=== PATIENT | female | born 1995 | race Hispanic/Latino ===

== ENCOUNTER 2018-07-20 19:59 | Emergency (ER) | payer SELFPAY ==
--- NOTE | 2018-07-20 20:13 | EDPHYS ---
Physician Documentation [facility] Name: Grace Bullock Age: 22 yrs Sex: Female : 1995 Arrival Date: 07/20/2018 Time: 20:02 Bed 17 Private MD: ED Physician Ford Denson HPI: 07/20 20:11 This 22 yrs old Female presents to ER via Unassigned with complaints of Ear kb Pain, Drainage From Ear. 20:11 The patient presents with pain. The complaints affect the right ear and left ear. kb Onset: The symptoms/episode began/occurred 3 day(s) ago. Modifying factors: The symptoms are alleviated by nothing, the symptoms are aggravated by nothing. Associated signs and symptoms: Pertinent positives: fever. Severity of symptoms: At their worst the symptoms were moderate in the emergency department the symptoms are unchanged. The patient has not experienced similar symptoms in the past. The patient has not recently seen a physician. Right ear pain for 3 days, left ear pain for 1 day. Fever on the first day, but not since then. States hearing is muffled on right side. 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 - Social history:: Smoking status: Patient/guardian denies using tobacco. - Ebola Screening: : Patient negative for fever greater than or equal to 101.5 degrees Fahrenheit, and additional compatible Ebola Virus Disease symptoms. ROS: 20:11 Constitutional: Negative for fever, chills, and weight loss, Cardiovascular: Negative kb for chest pain, palpitations, and edema, Respiratory: Negative for shortness of breath, cough, wheezing, and pleuritic chest pain, Abdomen/GI: Negative for abdominal pain, nausea, vomiting, diarrhea, and constipation, MS/Extremity: Negative for injury and deformity, Skin: Negative for injury, rash, and discoloration, Neuro: Negative for headache, weakness, numbness, tingling, and seizure. 20:11 ENT: Positive for ear pain. Exam: 20:11 Constitutional: This is a well developed, well nourished patient who is awake, alert, kb and in no acute distress. Head/Face: Normocephalic, atraumatic. Neck: Trachea midline, no thyromegaly or masses palpated, and no cervical lymphadenopathy. Supple, full range of motion without nuchal rigidity, or vertebral point tenderness. No Meningismus. Chest/axilla: Normal chest wall appearance and motion. Nontender with no deformity. No lesions are appreciated. Cardiovascular: Regular rate and rhythm with a normal S1 and S2. No gallops, murmurs, or rubs. Normal PMI, no JVD. No pulse deficits. Respiratory: Lungs have equal breath sounds bilaterally, clear to auscultation and percussion. No rales, rhonchi or wheezes noted. No increased work of breathing, no retractions or nasal flaring. Abdomen/GI: Soft, non-tender, with normal bowel sounds. No distension or tympany. No guarding or rebound. No evidence of tenderness throughout. Skin: Warm, dry with normal turgor. Normal color with no rashes, no lesions, and no evidence of cellulitis. MS/ Extremity: Pulses equal, no cyanosis. Neurovascular intact. Full, normal range of motion. Neuro: Awake and alert, GCS 15, oriented to person, place, time, and situation. Cranial nerves II-XII grossly intact. Motor strength 5/5 in all extremities. Sensory grossly intact. Cerebellar exam normal. Normal gait. 20:11 ENT: External ear(s): are unremarkable, Ear canal(s): are normal, TM's: bulging, on the right, erythema, that is moderate, on the right. Vital Signs: 20:12 BP 119 / 87; Pulse 87; Resp 16 S; Temp 98.7(O); Pulse Ox 99% on R/A; Weight 56.7 kg jd3 (R); Height 5 ft. 1 in. (154.94 cm) (R); Pain 8/10; 20:12 Body Mass Index 23.62 (56.70 kg, 154.94 cm) jd3 MDM: 20:07 Patient medically screened. kb 20:12 Data reviewed: vital signs, nurses notes. Data interpreted: Pulse oximetry: on room air kb is 100 %. Interpretation: normal. Counseling: I had a detailed discussion with the patient and/or guardian regarding: the historical points, exam findings, and any diagnostic results supporting the discharge/admit diagnosis, the need for outpatient follow up, a family practitioner, to return to the emergency department if symptoms worsen or persist or if there are any questions or concerns that arise at home. Administered Medications: No medications were administered Disposition: 07/21 07:49 Co-signature as Attending Physician, Ford Denson MD I agree with the assessment and derik plan of care. Disposition: 07/20/18 20:13 Discharged to Home. Impression: Otitis media, unspecified, right ear. - Condition is Stable. - Discharge Instructions: Otitis Media, Adult, [id number]. - Prescriptions for Amoxicillin 875 mg Oral Tablet - take 1 tablet by ORAL route every 12 hours for 10 days; 20 tablet. - Medication Reconciliation Form, Thank You Letter, Antibiotic Education, Prescription Opioid Use form. - Follow up: Emergency Department; When: As needed; Reason: Worsening of condition. Follow up: Private Physician; When: 2 - 3 days; Reason: Recheck today's complaints, Continuance of care, Re-evaluation by your physician. Signatures: Maricel Dill, BARREL RIFLER BUTTON-C BARREL RIFLER BUTTON-Ford Vogel MD MD cha Krenek, Amber, RN RN ak1 Faisal José RN RN jd3 Corrections: (The following items were deleted from the chart) 07/20 20:30 20:13 07/20/2018 20:13 Discharged to Home. Impression: Otitis media, unspecified, right ak1 ear. Condition is Stable. Forms are Medication Reconciliation Form, Thank You Letter, Antibiotic Education, Prescription Opioid Use. Follow up: Emergency Department; When: As needed; Reason: Worsening of condition. Follow up: Private Physician; When: 2 - 3 days; Reason: Recheck today's complaints, Continuance of care, Re-evaluation by your physician. kb
--- NOTE | 2018-07-20 20:13 | ER ---
Nurse's Notes [facility] Name: Grace Bullock Age: 22 yrs Sex: Female : 1995 Arrival Date: 07/20/2018 Time: 20:02 Bed 17 Private MD: Diagnosis: Otitis media, unspecified, right ear Presentation: 07/20 20:10 Presenting complaint: Patient states: "I am having pain in both my ears. I am having jd3 drainage and I can't hear out of my right ear.". Transition of care: patient was not received from another setting of care. Onset of symptoms was July 20, 2018. Risk Assessment: Do you want to hurt yourself or someone else? Patient reports no desire to harm self or others. Initial Sepsis Screen: Does the patient meet any 2 criteria? No. Patient's initial sepsis screen is negative. Does the patient have a suspected source of infection? No. Patient's initial sepsis screen is negative. Care prior to arrival: None. 20:10 Method Of Arrival: Ambulatory jd3 20:10 Acuity: ADE 4 jd3 Triage Assessment: 20:27 General: Appears in no apparent distress. Behavior is calm, cooperative. Pain: ak1 Complains of pain in right ear and left ear. EENT: Reports pain in left ear and right ear. Neuro: No deficits noted. Cardiovascular: No deficits noted. Respiratory: No deficits noted. GI: No signs and/or symptoms were reported involving the gastrointestinal system. : No signs and/or symptoms were reported regarding the genitourinary system. Derm: No signs and/or symptoms reported regarding the dermatologic system. Musculoskeletal: No signs and/or symptoms reported regarding the musculoskeletal system. 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 - Social history:: Smoking status: Patient/guardian denies using tobacco. - Ebola Screening: : Patient negative for fever greater than or equal to 101.5 degrees Fahrenheit, and additional compatible Ebola Virus Disease symptoms. Screenin:26 Abuse screen: Denies threats or abuse. Denies injuries from another. Nutritional ak1 screening: No deficits noted. Tuberculosis screening: No symptoms or risk factors identified. Fall Risk None identified. Vital Signs: 20:12 BP 119 / 87; Pulse 87; Resp 16 S; Temp 98.7(O); Pulse Ox 99% on R/A; Weight 56.7 kg jd3 (R); Height 5 ft. 1 in. (154.94 cm) (R); Pain 8/10; 20:12 Body Mass Index 23.62 (56.70 kg, 154.94 cm) jd3 ED Course: 20:02 Patient arrived in ED. es 20:03 Maricel Dill FNP-C [facility]. kb 20:03 Ford Denson MD is Attending Physician. kb 20:06 Aicha Redd, RN is Primary Nurse. ak1 20:11 Triage completed. jd3 20:14 Arm band placed on. jd3 20:27 Patient has correct armband on for positive identification. Bed in low position. Call ak1 light in reach. Side rails up X 1. Pulse ox on. NIBP on. 20:28 No provider procedures requiring assistance completed. Patient did not have IV access ak1 during this emergency room visit. Administered Medications: No medications were administered Outcome: 20:13 Discharge ordered by . kb 20:28 Discharged to home ambulatory, with family. ak1 20:28 Condition: good 20:28 Discharge instructions given to patient, Instructed on discharge instructions, follow up and referral plans. no drinking with medication, no driving heavy equipment, medication usage, safe sex practices, control, Demonstrated understanding of instructions, follow-up care, medications, Prescriptions given X 1. 20:30 Patient left the ED. ak1 Signatures: Maricel Dill FNP-C FNP-Helga Lomax Aicha Redd, RN RN ak1 Faisal José RN RN j
== END 2018-07-20 20:30 | disposition home or self-care (01) ==
LOC: ER 19:59
DX: H66.91 Otitis media, unspecified, right ear (principal)
CPT/HCPCS: 99283

== ENCOUNTER 2021-02-01 20:55 | Emergency (ER) | payer SELFPAY ==
--- OUTSIDE RECORDS SUMMARY | 2021-02-01 20:58 | XMS REPORT | Continuity of Care Document ---
:1995 Author Organization [facility] t Address [address] [place] [address] Care Team Providers Name Role Phone Arnaldo Toro DO Attending Clinician Rory Callejas Attending Clinician Problems Condition Condition Condition Status Onset Resolution Last Treating Co mments Source Name Details Category Date Date Treatment Clinician Date No-show Diagnosis Active 2019-12-14 Me moria for 02:04:52 l appointmen No-show Her lange t for appointmen t Active Diagnosis 12/14/2019 eCW: Tito Andersen Screening Diagnosis Active 2019-12-14 Memoria for 02:02:16 l thyroid [place] disorder Screening for thyroid disorder Active Diagnosis 12/14/2019 eCW: Tito Andersen Allergies, Adverse Reactions, Alerts This patient has no known allergies or adverse reactions. Medications This patient has no known medications. Vital Signs Vital Name Observation Time Observation Value Comments Source Weight 2019-09-20 18:15:00 [facility] [place] Height 2019-09-20 18:15:00 [facility] [place] Diastolic (mm Hg) 2019-09-20 18:15:00 [facility] [place] Systolic (mm Hg) 2019-09-20 18:15:00 [facility] [place] Procedures This patient has no known procedures. Encounters Start End Encounter Admission Attending Care Care Encounter Source Date/Time Date/Time Type Type Clinicians Facility Department ID 2020-10-02 2020-10-02 Patient STEPHENIE Toro [id number] 00:00:00 00:00:00 Outreach Azam [facility] [id number] [facility] [id number] [facility] [id number] 2020-08-07 2020-08-07 [facility] [id number] 10:53:10 11:33:55 Visit Rochelle Valadez [facility] [id number] [facility] [id number] MATERNAL [id number] & CHILD [address] [place] [address] 2019-10-18 2019-10-18 Outpatient Tito Francis [id number] [facility] 09:30:00 09:30:00 Ganesh Edwards M.D., MCasimiro., P.A. P.A. 2019-09-20 2019-09-20 Outpatient Tito Francis [id number] [facility] 13:15:00 13:15:00 Ganesh Edwards M.D., M.Kevin., P.A. P.A. 2019-09-20 2019-09-20 Outpatient Tito Francis [id number] [facility] 13:15:00 13:15:00 Ganesh Edwards M.D., MCasimiro[facility] P.A. P.A. Results This patient has no known results.
== END 2021-02-01 21:55 | disposition left against medical advice (07) ==
LOC: ER 20:55
DX: Z02.9 Encounter for administrative examinations, unspecified (principal)